=== PATIENT | male | born 1935 | race Caucasian/White ===

== ENCOUNTER 2016-09-23 13:09 | Outpatient (CLI) | payer MEDICARE, BC | END 2016-09-23 13:10 | disposition home or self-care (01) | DRG 554 | LOC: CONVCARE 13:09 | PROVIDERS: ATTEND Orthopaedic Surgery | DX: M17.12 Unilateral primary osteoarthritis, left knee (principal); M25.561 Pain in right knee | CPT/HCPCS: 73560 ==

== ENCOUNTER 2017-11-25 07:40 | Day surgery (SDC) | payer MEDICARE, BC ==
[2017-11-25] MEDS ORDERED: PROPOFOL 500 MG/50 ML EMU IV ONE (07:57)
[2017-11-25 08:23] VITALS: TEMP 97.3
[2017-11-25 10:34] VITALS: BP 127/71; PULSE 55; RESP 20; O2SAT 95
== END 2017-11-25 10:51 | disposition home or self-care (01) | DRG 392 ==
LOC: SURG 07:40
PROVIDERS: ATTEND Internal Medicine Gastroenterology
DX: R10.11 Right upper quadrant pain (principal); Q39.9 Congenital malformation of esophagus, unspecified; R14.2 Eructation; K22.2 Esophageal obstruction; K44.9 Diaphragmatic hernia without obstruction or gangrene; L53.8 Other specified erythematous conditions; K25.9 Gastric ulcer, unspecified as acute or chronic, without hemorrhage or perforation; K31.9 Disease of stomach and duodenum, unspecified; K29.70 Gastritis, unspecified, without bleeding
CPT/HCPCS: J2704

== ENCOUNTER 2018-01-20 08:45 | Day surgery (SDC) | payer MEDICARE, BC ==
[~2018-01-20 08:45] MED LIST: LIDOCAINE HCL 1% MPF 30 SOL ONE; PROPOFOL 500 MG/50 ML EMU IV ONE
[2018-01-20 10:32] VITALS: O2SAT 95
[2018-01-20 10:41] VITALS: BP 138/79; PULSE 54; RESP 16; TEMP 96.8
[2018-01-20 13:39] LABS: PATHOLOGY SPEC OR BIOPSY REFER MAYO/MKTO PATH
== END 2018-01-20 11:11 | disposition home or self-care (01) | DRG 392 ==
LOC: SURG 08:45
PROVIDERS: ATTEND Internal Medicine Gastroenterology
DX: R10.11 Right upper quadrant pain (principal); K25.9 Gastric ulcer, unspecified as acute or chronic, without hemorrhage or perforation; K22.2 Esophageal obstruction; K44.9 Diaphragmatic hernia without obstruction or gangrene; L53.8 Other specified erythematous conditions
CPT/HCPCS: J2001; J2704

== ENCOUNTER 2018-03-24 06:53 | Day surgery (SDC) | payer MEDICARE, BC ==
[2018-03-24] MEDS ORDERED: PROPOFOL 500 MG/50 ML EMU IV ONE (07:53)
[2018-03-24 08:54] VITALS: TEMP 97.8
[2018-03-24 14:07] VITALS: BP 124/79; PULSE 73; RESP 16; O2SAT 95
== END 2018-03-24 09:24 | disposition home or self-care (01) | DRG 384 ==
LOC: SURG 06:53
PROVIDERS: ATTEND Internal Medicine Gastroenterology
DX: K25.9 Gastric ulcer, unspecified as acute or chronic, without hemorrhage or perforation (principal); Q39.9 Congenital malformation of esophagus, unspecified; K22.2 Esophageal obstruction; L53.8 Other specified erythematous conditions; Q40.3 Congenital malformation of stomach, unspecified
CPT/HCPCS: J2704

== ENCOUNTER 2018-05-19 06:50 | Day surgery (SDC) | payer MEDICARE, BC ==
[2018-05-19] MEDS ORDERED: PROPOFOL 500 MG/50 ML EMU IV ONE (07:46)
[2018-05-19] MEDS ORDERED: LIDOCAINE HCL 1% MPF 30 SOL ONE (07:46)
[2018-05-19] MEDS ORDERED: FENTANYL 100MCG/2ML SOL ONE (07:46)
[2018-05-19 08:36] VITALS: TEMP 97
[2018-05-19 09:01] VITALS: BP 137/80; PULSE 58; RESP 18; O2SAT 95
== END 2018-05-19 09:35 | disposition home or self-care (01) | DRG 153 ==
LOC: SURG 06:50
PROVIDERS: ATTEND Internal Medicine Gastroenterology
DX: J11.1 Influenza due to unidentified influenza virus with other respiratory manifestations (principal); Q39.9 Congenital malformation of esophagus, unspecified; K25.9 Gastric ulcer, unspecified as acute or chronic, without hemorrhage or perforation; K22.2 Esophageal obstruction; L53.8 Other specified erythematous conditions; Q40.2 Other specified congenital malformations of stomach
CPT/HCPCS: J3010; J2001; J2704